=== PATIENT | female | born 1945 | race Caucasian/White ===

== ENCOUNTER → 2016-06-19 | Outpatient (REF) | payer MEDICARE, BC ==
[~2016-06-19] MED LIST: ASPI81TA3 OR; ASPI81TA85 PO; BUPR100T3 PO; CALC600T10 PO; CALCTAB22 OR; KEFL500C OR; PERC7.5T8 OR; VENL37.5 OR; VENL37CA PO; VENL75TA2 OR; VITAMIN B 12 PO; WELL100T OR; [UNRECOGNIZED DRUG - OTHER] PO
[2016-06-19 11:47] LABS: MEAN CORPUSCULAR HEMOGLOBIN 31.2 pg (27.0-33.0); MEAN CORPUSCULAR HGB CONC 34.6 g/dl (32.0-36.5); MEAN CORPUSCULAR VOLUME 90.3 fl (80.0-96.0); RED CELL DISTRIBUTION WIDTH 12.8 % (11.5-14.5); WHITE BLOOD COUNT 5.7 K/mm3 (4.0-10.0)
[2016-06-19 11:54] LABS: ALBUMIN 3.6 GM/DL (3.2-5.2); ALBUMIN/GLOBULIN RATIO 1.24 (1.00-1.93); ALKALINE PHOSPHATASE 88 U/L (45-117); ALT/SGPT 21 U/L (12-78); ANION GAP 8 MEQ/L (8-16); AST/SGOT 18 U/L (15-37); BILIRUBIN,TOTAL 0.5 MG/DL (0.2-1.0); BLOOD UREA NITROGEN 10 MG/DL (7-18); CARBON DIOXIDE LEVEL 31 MEQ/L (21-32); CHLORIDE LEVEL 105 MEQ/L (98-107); CHOLESTEROL LEVEL 190 MG/DL (<200); GLOMERULAR FILTRATION RATE > 60.0 (>39); GLUCOSE, FASTING 88 MG/DL (83-110); POTASSIUM SERUM 4.1 MEQ/L (3.5-5.1); SODIUM LEVEL 144 MEQ/L (136-145); TOTAL PROTEIN 6.5 GM/DL (6.4-8.2); TRIGLYCERIDES LEVEL 113 MG/DL (<150)
== END ==
LOC: M SFHCCLAY 08:31
PROVIDERS: ATTEND Family Medicine
DX: Z00.00 Encounter for general adult medical examination without abnormal findings (principal); F33.40 Major depressive disorder, recurrent, in remission, unspecified; Z85.038 Personal history of other malignant neoplasm of large intestine; Z78.0 Asymptomatic menopausal state; Z79.899 Other long term (current) drug therapy; Z23 Encounter for immunization

== ENCOUNTER → 2016-06-24 | Outpatient (CLI) | payer MEDICARE, BC ==
[~2016-06-24] VITALS: Ht 165.1 cm; Wt 69.9 kg
[~2016-06-24] MED LIST changes: +LIDOCAINE 2% INJ 100 MG/5 ML SDV (FOR ANES.) As Ordered ONE; +NS 1,000 ML IV SCH; +PROPOFOL 200 MG/20 ML VIAL As Ordered ONE
--- NOTE | 2016-06-24 10:39 | ROOR ---
Patient Name: Sherine Avalos Procedure Date: 06/24/2016 10:05 AM Date of : 1945 Age: 70 Room: [facility] Gender: Female Note Status: Finalized Procedure: Colonoscopy to Cecum + Cold Snare Polypectomy + Hemoclips Indications: High risk colon cancer surveillance: Personal history of colonic polyps, Last colonoscopy: 2013 Providers: Flavio Lyons MD Referring MD: Zan Mccracken MD Requesting Provider: Medicines: Monitored Anesthesia Care Complications: No immediate complications. Procedure: Pre-Anesthesia Assessment: - The heart rate, respiratory rate, oxygen saturations, blood pressure, adequacy of pulmonary ventilation, and response to care were monitored throughout the procedure. The Colonoscope was introduced through the anus and advanced to the cecum, identified by appendiceal orifice and ileocecal valve. The colonoscopy was performed without difficulty. The patient tolerated the procedure well. The quality of the bowel preparation was excellent. Findings: The perianal and digital rectal examinations were normal. A medium polyp was found in the rectum. The polyp was sessile. The polyp was removed with a cold snare. Resection and retrieval were complete. To prevent bleeding after the polypectomy, three hemostatic clips were successfully placed (MR conditional). There was no bleeding at the end of the procedure. No other significant abnormalities were identified in a careful examination of the remainder of the colon. The exam was otherwise without abnormality on direct and retroflexion views. Impression: - One medium polyp in the rectum, removed with a cold snare. Resected and retrieved. Clips (MR conditional) were placed. - The examination was otherwise normal on direct and retroflexion views. - The exam was otherwise normal to the cecum. Recommendation: - Patient has a contact number available for emergencies. The signs and symptoms of potential delayed complications were discussed with the patient. Return to normal activities tomorrow. Written discharge instructions were provided to the patient. - High fiber diet. - Discharge patient to home. - Continue present medications. - Await pathology results. - Telephone GI clinic for pathology results in 1 week. - Repeat colonoscopy in 5 years for surveillance based on pathology results. - Return to referring physician. - The findings and recommendations were discussed with the patient's family. Flavio Lyons MD Flavio Lyons MD 06/24/2016 10:38:27 AM This report has been signed electronically. Number of Addenda: 0 Note Initiated On: 06/24/2016 10:05 AM Estimated Blood Loss: Estimated blood loss: none.
[2016-06-24 11:05] VITALS: BP 138/90
== END | disposition home or self-care (01) ==
LOC: M OPP 09:12
PROVIDERS: ATTEND Internal Medicine Gastroenterology
DX: Z12.11 Encounter for screening for malignant neoplasm of colon (principal); K62.1 Rectal polyp; F33.9 Major depressive disorder, recurrent, unspecified; Z79.82 Long term (current) use of aspirin; Z79.899 Other long term (current) drug therapy; Z85.038 Personal history of other malignant neoplasm of large intestine

== ENCOUNTER → 2016-10-07 | Outpatient (CLI) | payer MEDICARE, BC ==
[~2016-10-07] MED LIST changes: -LIDOCAINE 2% INJ 100 MG/5 ML SDV (FOR ANES.) As Ordered ONE; -NS 1,000 ML IV SCH; -PROPOFOL 200 MG/20 ML VIAL As Ordered ONE
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
== END ==
LOC: M WHC 08:18
PROVIDERS: ATTEND Family Medicine
DX: Z78.0 Asymptomatic menopausal state (principal)

== ENCOUNTER → 2017-06-20 | Outpatient (REF) | payer MEDICARE, BC ==
[2017-06-20 11:44] LABS: HEMATOCRIT 41.3 % (36.0-47.0); HEMOGLOBIN 13.8 g/dl (12.0-16.0); MEAN CORPUSCULAR HEMOGLOBIN 29.7 pg (27.0-33.0); MEAN CORPUSCULAR HGB CONC 33.4 g/dl (32.0-36.5); PLATELET COUNT, AUTOMATED 226 10^3/uL (150-450); RED BLOOD COUNT 4.64 10^6/uL (4.00-5.40); RED CELL DISTRIBUTION WIDTH 12.7 % (11.5-14.5); WHITE BLOOD COUNT 6.3 10^3/uL (4.0-10.0)
[2017-06-20 12:05] LABS: ALBUMIN 3.8 GM/DL (3.2-5.2); ALBUMIN/GLOBULIN RATIO 1.09 (1.00-1.93); ALKALINE PHOSPHATASE 93 U/L (45-117); ALT/SGPT 30 U/L (12-78); ANION GAP 5 MEQ/L (8-16); AST/SGOT 26 U/L (7-37); BILIRUBIN,TOTAL 0.5 MG/DL (0.2-1.0); BLOOD UREA NITROGEN 19 MG/DL (7-18); CARBON DIOXIDE LEVEL 32 MEQ/L (21-32); CHLORIDE LEVEL 103 MEQ/L (98-107); CHOLESTEROL LEVEL 214 MG/DL (<200); CHOLESTEROL RISK RATIO 2.708 (<5); CREATININE FOR GFR 0.93 MG/DL (0.55-1.30); GLOMERULAR FILTRATION RATE > 60.0 (>39); GLUCOSE, FASTING 91 MG/DL (70-100); HDL CHOLESTEROL 79 MG/DL (>40); LDL CHOLESTEROL 114.6 MG/DL (<100); NON-HDL-C 135 MG/DL; POTASSIUM SERUM 4.2 MEQ/L (3.5-5.1); SODIUM LEVEL 140 MEQ/L (136-145); TOTAL PROTEIN 7.3 GM/DL (6.4-8.2); TRIGLYCERIDES LEVEL 102 MG/DL (<150)
== END ==
LOC: M SFHCCLAY 08:02
DX: Z00.00 Encounter for general adult medical examination without abnormal findings (principal); F33.40 Major depressive disorder, recurrent, in remission, unspecified; Z85.038 Personal history of other malignant neoplasm of large intestine; Z79.899 Other long term (current) drug therapy
CPT/HCPCS: 84443

== ENCOUNTER → 2017-08-25 | Outpatient (REF) | payer MEDICARE, BC | LOC: M SFHCCLAY 10:51 | DX: Z00.00 Encounter for general adult medical examination without abnormal findings (principal) | CPT/HCPCS: 84443 ==

== ENCOUNTER → 2017-09-26 | Outpatient (CLI) | payer MEDICARE, BC | LOC: M CLY 14:34 | DX: J40 Bronchitis, not specified as acute or chronic (principal) | CPT/HCPCS: 71046; G0463 ==

== ENCOUNTER → 2017-12-08 | Outpatient (CLI) | payer MEDICARE, BC | LOC: M RAD 09:41 | DX: Z12.31 Encounter for screening mammogram for malignant neoplasm of breast (principal); N60.11 Diffuse cystic mastopathy of right breast; N60.12 Diffuse cystic mastopathy of left breast; Z80.3 Family history of malignant neoplasm of breast | CPT/HCPCS: 77067 ==

== ENCOUNTER → 2018-06-26 | Outpatient (REF) | payer MEDICARE, BC ==
[~2018-06-26] MED LIST changes: -CALC600T10 PO; +CALC600T31 PO; +VENL37.52 PO; -VENL37CA PO
[2018-06-26 12:23] LABS: HEMATOCRIT 42.8 % (36.0-47.0); HEMOGLOBIN 13.9 g/dl (12.0-15.5); MEAN CORPUSCULAR HEMOGLOBIN 29.3 pg (27.0-33.0); MEAN CORPUSCULAR HGB CONC 32.5 g/dl (32.0-36.5); MEAN CORPUSCULAR VOLUME 90.3 fl (80.0-96.0); PLATELET COUNT, AUTOMATED 228 10^3/uL (150-450); RED BLOOD COUNT 4.74 10^6/uL (4.00-5.40); WHITE BLOOD COUNT 6.2 10^3/uL (4.0-10.0)
[2018-06-26 12:36] LABS: ALBUMIN 3.9 GM/DL (3.2-5.2); ALT/SGPT 27 U/L (12-78); BILIRUBIN,TOTAL 0.5 MG/DL (0.2-1.0); BLOOD UREA NITROGEN 19 MG/DL (7-18); CALCIUM LEVEL 8.8 MG/DL (8.8-10.2); CARBON DIOXIDE LEVEL 31 MEQ/L (21-32); CHLORIDE LEVEL 103 MEQ/L (98-107); CHOLESTEROL LEVEL 215 MG/DL (<200); CHOLESTEROL RISK RATIO 3.359 (<5); CREATININE FOR GFR 0.92 MG/DL (0.55-1.30); GLOMERULAR FILTRATION RATE > 60.0 (>39); GLUCOSE, FASTING 90 MG/DL (70-100); HDL CHOLESTEROL 64 MG/DL (>40); LDL CHOLESTEROL 124 MG/DL (<100); NON-HDL-C 151 MG/DL; POTASSIUM SERUM 4.4 MEQ/L (3.5-5.1); SODIUM LEVEL 138 MEQ/L (136-145); TOTAL 25(OH) VITAMIN D 28.4 NG/ML (30.0-100.0); TOTAL PROTEIN 7.1 GM/DL (6.4-8.2); TRIGLYCERIDES LEVEL 134 MG/DL (<150)
== END ==
LOC: M SFHCCLAY 08:47
PROVIDERS: ATTEND Family Medicine
DX: Z00.00 Encounter for general adult medical examination without abnormal findings (principal); F33.40 Major depressive disorder, recurrent, in remission, unspecified; Z85.3 Personal history of malignant neoplasm of breast

== ENCOUNTER → 2019-08-03 | Outpatient (CLI) | payer MEDICARE, BC ==
--- NOTE | 2019-08-03 16:42 | REP ---
HISTORY: Cough and fever. COMPARISON: 09/26/2017 A subtle opacity has developed in the left lower lobe retrocardiac region, best seen on the lateral view. The lung gonzalez are otherwise clear. The heart is not enlarged and the osseous structures stable and intact. IMPRESSION: Subtle but new left lower lobe opacity. Subsegmental atelectatic change versus pneumonia. This should be correlated clinically with appropriate followup. Electronically Signed by Fred Melton DO 08/03/2019 04:57 P
== END ==
LOC: M CLY 15:32
PROVIDERS: ATTEND Nurse Practitioner Family
DX: R91.8 Other nonspecific abnormal finding of lung field (principal); R05 Cough
CPT/HCPCS: 71046; G0463

== ENCOUNTER → 2019-08-05 | Outpatient (REF) | payer MEDICARE, BC | LOC: M SFHCCLAY 12:04 | PROVIDERS: ATTEND Family Medicine | DX: J12.9 Viral pneumonia, unspecified (principal); Z11.59 Encounter for screening for other viral diseases ==

== ENCOUNTER → 2019-08-18 | Outpatient (CLI) | payer MEDICARE, BC ==
--- NOTE | 2019-08-18 10:14 | REP ---
REASON: Followup. COMPARISON: 08/03/2019 The subtle opacity seen in the anterior segment of the left lower lobe has resolved. The lung gonzalez are clear and the heart is not enlarged. The pleural angles are sharp. The osseous structures are stable and intact. IMPRESSION: No evidence of acute cardiopulmonary disease. Findings as described above. Electronically Signed by Fred Melton DO 08/18/2019 10:24 A
== END ==
LOC: M CLY 09:20
PROVIDERS: ATTEND Nurse Practitioner Family
DX: J18.9 Pneumonia, unspecified organism (principal)

== ENCOUNTER → 2019-09-30 | Outpatient (CLI) | payer MEDICARE, BC ==
--- NOTE | 2019-10-08 18:44 | SLEEPCENT ---
DATE OF PROCEDURE: 09/30/2019 ORDERED BY: KANIKA Mcintosh Nocturnal polysomnography was performed for evaluation of sleep physiology in this patient with a history of excessive somnolence and nonrestorative sleep. At the patient's request, testing was performed in a reclining chair. 8 hours and 7 minutes of data were reviewed. There were 287 minutes of sleep identified. Sleep latency was short at 12 minutes. Rapid eye movement (REM) latency was prolonged at 370 minutes. Sleep architecture showed fragmentation. Overall sleep efficiency was 60.1%. The patient's electrocardiogram showed a sinus rhythm with an average heart rate of 67 beats per minute. EEG showed normal waveforms for awake and sleep. There were 333 respiratory events identified of 10 seconds in duration or greater for an apnea-hypopnea index of 69.6. The events were primarily obstructive, though 114 of 333 events were mixed or central. Arousals from respiratory events occurred 55.2 times per hour. There was activity in the limb leads but arousals were few and oxygen desaturations were seen into the low 80s. IMPRESSION: Severe complex obstructive sleep apnea syndrome (G47.31, G47.33), apnea-hypopnea index 69.6. RECOMMENDATIONS: The patient should be encouraged to return to the sleep disorder center for pressure therapy. In the interim, alcohol and sedative avoidance should be practiced and caution exercised during the operation of motor vehicles.
== END ==
LOC: M SLEEP 20:00
PROVIDERS: ATTEND Nurse Practitioner Family
DX: G47.33 Obstructive sleep apnea (adult) (pediatric) (principal)

== ENCOUNTER → 2019-11-11 | Outpatient (CLI) | payer MEDICARE, BC ==
[~2019-11-11] MED LIST changes: -ASPI81TA85 PO; +ASPI81TA86 PO
--- NOTE | 2019-11-24 11:27 | SLEEPCENT ---
DATE OF PROCEDURE: 11/11/2019 ORDERED BY: KANIKA Mcintosh Nocturnal polysomnography was performed for the titration of pressure therapy in this patient with obstructive sleep apnea syndrome. Apnea-hypopnea index of 69.6. For testing a ResMed F20 AirFit full-face mask of small size was used; 4 cm of water pressure applied to the circuit and the lights were extinguished. 7 hours and 41 minutes of data were reviewed. There were 401 minutes of sleep identified. Sleep latency was short at 4.5 minutes. Rapid eye movement (REM) latency was also short of 86 minutes. Sleep architecture was good with 3 REM cycles. Overall sleep efficiency 88.6%. The patient's electrocardiogram showed a sinus rhythm with an average heart rate of 60 beats per minute. Electroencephalogram (EEG) showed normal waveforms for awake and sleep stages. Persistence of respiratory events prompted an increase in CPAP pressure. Best sleep was seen on a CPAP pressure of +13. Some activity was seen in the limb leads particularly early in the study. Limb movement arousal index of 6. IMPRESSION: Obstructive sleep apnea syndrome (G47.33). Apnea-hypopnea index 69.6. RECOMMENDATIONS: Nightly use of pressure therapy 13 cm of water.
== END ==
LOC: M SLEEP 20:00
PROVIDERS: ATTEND Nurse Practitioner Family
DX: G47.33 Obstructive sleep apnea (adult) (pediatric) (principal)

== ENCOUNTER → 2020-05-03 | Outpatient (REF) | payer MEDICARE, BC ==
[2020-05-03 16:32] LABS: HEMOGLOBIN 13.9 g/dl (12.0-15.5); MEAN CORPUSCULAR HEMOGLOBIN 28.8 pg (27.0-33.0); MEAN CORPUSCULAR HGB CONC 31.6 g/dl (32.0-36.5); MEAN CORPUSCULAR VOLUME 91.3 fl (80.0-96.0); PLATELET COUNT, AUTOMATED 207 10^3/uL (150-450); RED BLOOD COUNT 4.82 10^6/uL (4.00-5.40); WHITE BLOOD COUNT 8.1 10^3/uL (4.0-10.0)
[2020-05-03 16:47] LABS: ALBUMIN 3.8 GM/DL (3.2-5.2); ALT/SGPT 29 U/L (12-78); BILIRUBIN,TOTAL 0.7 MG/DL (0.2-1.0); BLOOD UREA NITROGEN 14 MG/DL (7-18); CALCIUM LEVEL 9.5 MG/DL (8.8-10.2); CARBON DIOXIDE LEVEL 31 MEQ/L (21-32); CHLORIDE LEVEL 105 MEQ/L (98-107); CHOLESTEROL LEVEL 143 MG/DL (<200); CHOLESTEROL RISK RATIO 1.958 (<5); CREATININE FOR GFR 0.89 MG/DL (0.55-1.30); FREE T4 0.85 NG/DL (0.76-1.46); GLOMERULAR FILTRATION RATE > 60.0 (>39); GLUCOSE, FASTING 93 MG/DL (70-100); HDL CHOLESTEROL 73 MG/DL (>40); LDL CHOLESTEROL 42 MG/DL (<100); NON-HDL-C 70 MG/DL; POTASSIUM SERUM 4.4 MEQ/L (3.5-5.1); SODIUM LEVEL 141 MEQ/L (136-145); TOTAL PROTEIN 7.5 GM/DL (6.4-8.2); TRIGLYCERIDES LEVEL 139 MG/DL (<150)
[2020-05-03 17:19] LABS: CA19-9 TUMOR MARKER,CARBOHYDRA 1.7 U/ML (<35.0)
== END ==
LOC: M SFHCCLAY 10:34
PROVIDERS: ATTEND Family Medicine
DX: E78.2 Mixed hyperlipidemia (principal); Z85.038 Personal history of other malignant neoplasm of large intestine; Z85.3 Personal history of malignant neoplasm of breast

== ENCOUNTER → 2020-10-11 | Outpatient (CLI) | payer MEDICARE, BC ==
--- NOTE | 2020-10-11 13:06 | REP ---
INDICATION: M25.551 RIGHT HIP PAIN. COMPARISON: None. TECHNIQUE: Five views FINDINGS: Vertebral body height is within normal limits. There is disc space narrowing L 3/ 4 and L4-5 to the greatest degree with posterior disc space narrowing seen at all other levels. There is anterior lipping seen at those levels as well. There is mild retrolisthesis of L3 on L4. Degenerative facet joint changes are present at every level bilaterally particularly L5-S1. There is no spondylolysis or anterolisthesis. Marginal osteophyte formation is seen bilaterally at L4-5. The pedicles are intact bilaterally. IMPRESSION: Chronic changes as described above. <Electronically signed by Fred Melton > 10/11/20 [id number]
--- NOTE | 2020-10-11 13:08 | REP ---
INDICATION: M25.551 RIGHT HIP PAIN. COMPARISON: None TECHNIQUE: AP and frog-lateral views FINDINGS: The hip joint space is symmetric and relatively well maintained. There is no acute fracture or destructive osseous lesion. IMPRESSION: Within normal limits <Electronically signed by Fred Melton > 10/11/20 [id number]
== END ==
LOC: M CLY 11:43
PROVIDERS: ATTEND Family Medicine
DX: M51.36 Other intervertebral disc degeneration, lumbar region (principal); M25.78 Osteophyte, vertebrae; M25.551 Pain in right hip
CPT/HCPCS: 72110; 73502; G0463

== ENCOUNTER → 2021-02-20 | Outpatient (REF) | payer MEDICARE, BC | LOC: M SFHCCLAY 16:45 | PROVIDERS: ATTEND Physician Assistant | DX: R05.9 Cough, unspecified (principal) | CPT/HCPCS: 87426; 87798; G0463 ==

== ENCOUNTER → 2021-02-21 | Outpatient (CLI) | payer MEDICARE, BC ==
--- NOTE | 2021-02-21 09:12 | REP ---
INDICATION: R05.9, COUGH. COMPARISON: Multiple the latest 08/18/2019 TECHNIQUE: PA and lateral FINDINGS: The superior mediastinal structures are midline. The cardiac silhouette is unremarkable in size, shape, and position. The diaphragmatic surfaces of the lungs are regular, and the costophrenic angles are clear. The pulmonary gonzalez are clear. The imaged osseous structures are intact. IMPRESSION: There is no acute cardiopulmonary disease. <Electronically signed by Fred Melton > 02/21/21 [id number]
== END ==
LOC: M CLY 08:53
PROVIDERS: ATTEND Physician Assistant
DX: R05.9 Cough, unspecified (principal)

== ENCOUNTER → 2021-06-07 | Outpatient (REF) | payer MEDICARE, BC ==
[2021-06-07 11:39] LABS: BASO % 0.7 % (0.0-1.0); HEMATOCRIT 42.1 % (36.0-47.0); HEMOGLOBIN 13.5 g/dl (12.0-15.5); LYMPH # 1.5 10^3/uL (1.5-5.0); LYMPH % 26.7 % (24.0-44.0); MEAN CORPUSCULAR HEMOGLOBIN 29.7 pg (27.0-33.0); MEAN CORPUSCULAR HGB CONC 32.1 g/dl (32.0-36.5); MEAN CORPUSCULAR VOLUME 92.5 fl (80.0-96.0); MONO # 0.4 10^3/uL (0.0-0.8); MONO % 7.5 % (2.0-8.0); NEUTROPHILS # 3.5 10^3/uL (1.5-8.5); NEUTROPHILS % 60.8 % (36.0-66.0); PLATELET COUNT, AUTOMATED 193 10^3/uL (150-450); RED BLOOD COUNT 4.55 10^6/uL (4.00-5.40); WHITE BLOOD COUNT 5.7 10^3/uL (4.0-10.0)
[2021-06-07 11:40] LABS: EOS # 0.2 10^3/uL (0.0-0.5)
[2021-06-07 12:27] LABS: ALBUMIN 3.9 GM/DL (3.2-5.2); ALT/SGPT 31 U/L (12-78); BILIRUBIN,TOTAL 0.6 MG/DL (0.2-1.0); BLOOD UREA NITROGEN 15 MG/DL (7-18); CALCIUM LEVEL 9.5 MG/DL (8.8-10.2); CARBON DIOXIDE LEVEL 29 MEQ/L (21-32); CHLORIDE LEVEL 104 MEQ/L (98-107); CHOLESTEROL LEVEL 153 MG/DL (<200); CHOLESTEROL RISK RATIO 2.593 (<5); CREATININE FOR GFR 0.92 MG/DL (0.55-1.30); FREE T4 0.96 NG/DL (0.76-1.46); GLOMERULAR FILTRATION RATE > 60.0 (>39); GLUCOSE, FASTING 99 MG/DL (70-100); HDL CHOLESTEROL 59 MG/DL (>40); LDL CHOLESTEROL 62 MG/DL (<100); NON-HDL-C 94 MG/DL; POTASSIUM SERUM 4.6 MEQ/L (3.5-5.1); SODIUM LEVEL 140 MEQ/L (136-145); TOTAL PROTEIN 6.8 GM/DL (6.4-8.2); TRIGLYCERIDES LEVEL 162 MG/DL (<150)
== END ==
LOC: M SFHCCLAY 08:52
PROVIDERS: ATTEND Family Medicine
DX: E78.2 Mixed hyperlipidemia (principal); F33.40 Major depressive disorder, recurrent, in remission, unspecified; Z85.038 Personal history of other malignant neoplasm of large intestine; Z79.899 Other long term (current) drug therapy

== ENCOUNTER → 2021-07-16 | Outpatient (REF) | payer MEDICARE, BC ==
[2021-07-16 16:55] LABS: ALBUMIN 4.3 GM/DL (3.2-5.2); BILIRUBIN,TOTAL 0.7 MG/DL (0.2-1.0); CALCIUM LEVEL 9.9 MG/DL (8.8-10.2); CHOLESTEROL RISK RATIO 3.774 (<5); CREATININE FOR GFR 1.09 MG/DL (0.55-1.30); FREE T4 0.96 NG/DL (0.76-1.46); POTASSIUM SERUM 4.6 MEQ/L (3.5-5.1); THYROID STIMULATING HORMONE 3.25 uIU/ML (0.358-3.740); TOTAL PROTEIN 7.5 GM/DL (6.4-8.2)
== END ==
LOC: M SFHCCLAY 10:38
PROVIDERS: ATTEND Family Medicine
DX: I10 Essential (primary) hypertension (principal)

== ENCOUNTER → 2021-07-24 | Outpatient (CLI) | payer MEDICARE, BC | LOC: M RAD 10:33 | PROVIDERS: ATTEND Family Medicine | DX: G89.29 Other chronic pain (principal); M25.511 Pain in right shoulder ==

== ENCOUNTER → 2021-11-29 | Outpatient (REF) | payer MEDICARE, BC ==
[~2021-11-29] MED LIST changes: +BUPR-70 PO; -BUPR100T3 PO
[2021-11-29 11:41] LABS: BLOOD UREA NITROGEN 14 MG/DL (7-18); CARBON DIOXIDE LEVEL 28 MEQ/L (21-32); CHLORIDE LEVEL 108 MEQ/L (98-107); CREATININE FOR GFR 0.85 MG/DL (0.55-1.30); GLOMERULAR FILTRATION RATE > 60.0 (>39); GLUCOSE, FASTING 108 MG/DL (70-100); POTASSIUM SERUM 4.6 MEQ/L (3.5-5.1); SODIUM LEVEL 142 MEQ/L (136-145)
[2021-11-29 11:42] LABS: CALCIUM LEVEL 9.8 MG/DL (8.8-10.2)
== END ==
LOC: M SFHCCLAY 07:40
PROVIDERS: ATTEND Family Medicine
DX: E87.6 Hypokalemia (principal); S82.852S Displaced trimalleolar fracture of left lower leg, sequela

== ENCOUNTER → 2022-01-24 | Outpatient (REF) | payer MEDICARE, BC ==
[2022-01-24 18:03] LABS: CALCIUM LEVEL 9.1 MG/DL (8.8-10.2); GLOMERULAR FILTRATION RATE 57.2 (>39); POTASSIUM SERUM 4.2 MEQ/L (3.5-5.1)
== END ==
LOC: M SFHCCLAY 10:15
PROVIDERS: ATTEND Family Medicine
DX: I10 Essential (primary) hypertension (principal)

== ENCOUNTER → 2022-02-13 | Outpatient (CLI) | payer MEDICARE, BC ==
[~2022-02-13] MED LIST changes: +ALDA25TA4 PO; +BUPR150T12 PO; +CALCIUM + MAGNESIUM PO; +ECOT81TA5 PO; +PREVAGEN PO; +ROSU20TA5 PO; +VENL37.598 PO; +VITA200016 PO; +ZINC100T3 PO
== END ==
LOC: M LABSMTC 10:05
PROVIDERS: ATTEND Anesthesiology
DX: Z01.812 Encounter for preprocedural laboratory examination (principal); Z11.52 Encounter for screening for COVID-19

== ENCOUNTER 2022-02-18 08:18 | Day surgery (SDC) | payer MEDICARE, BC ==
[~2022-02-18] VITALS: Ht 165.1 cm; Wt 76.7 kg
[~2022-02-18 08:18] MED LIST changes: +NS 1,000 ML IV ONE
[2022-02-18] MEDS ORDERED: propofoL 200 MG/20 ML VIAL As Ordered ONE ×3 (09:27→09:41)
[2022-02-18] MEDS ORDERED: LIDOCAINE 2% 100MG/5ML SDV (FOR ANES.) As Ordered ONE (09:27)
[2022-02-18] MEDS ORDERED: GLYCOPYRROLATE INJ 0.2 MG/ML 2 ML VIAL As Ordered ONE (09:27)
[2022-02-18 10:15] VITALS: BP 140/69
== END 2022-02-18 10:54 | disposition home or self-care (01) ==
LOC: M OPP 08:18
PROVIDERS: ATTEND Internal Medicine Gastroenterology
DX: Z12.11 Encounter for screening for malignant neoplasm of colon (principal); Z86.010 Personal history of colon polyps; Z85.038 Personal history of other malignant neoplasm of large intestine; K63.5 Polyp of colon; D12.5 Benign neoplasm of sigmoid colon; K57.30 Diverticulosis of large intestine without perforation or abscess without bleeding; K64.0 First degree hemorrhoids; Z79.02 Long term (current) use of antithrombotics/antiplatelets; Z79.52 Long term (current) use of systemic steroids; Z79.899 Other long term (current) drug therapy; F32.9 Major depressive disorder, single episode, unspecified

== ENCOUNTER → 2022-05-02 | Outpatient (REF) | payer MEDICARE, BC ==
[~2022-05-02] MED LIST changes: -NS 1,000 ML IV ONE
[2022-05-02 18:02] LABS: MAGNESIUM LEVEL 1.9 MG/DL (1.8-2.4)
[2022-05-02 18:04] LABS: BLOOD UREA NITROGEN 20 MG/DL (9-23); CALCIUM LEVEL 9.5 MG/DL (8.3-10.6); CARBON DIOXIDE LEVEL 28 MMOL/L (20-31); CHLORIDE LEVEL 103 MMOL/L (98-107); CREATININE FOR GFR 0.95 MG/DL (0.55-1.30); GLOMERULAR FILTRATION RATE > 60.0 (>39); GLUCOSE, FASTING 82 MG/DL (74-106); POTASSIUM SERUM 4.9 MMOL/L (3.5-5.1); SODIUM LEVEL 139 MMOL/L (136-145); THYROID STIMULATING HORMONE 3.676 uIU/ML (0.55-4.78)
[2022-05-02 18:06] LABS: FREE T4 0.98 NG/DL (0.89-1.76)
== END ==
LOC: M SFHCCLAY 11:18
PROVIDERS: ATTEND Family Medicine
DX: J68.3 Other acute and subacute respiratory conditions due to chemicals, gases, fumes and vapors (principal); I10 Essential (primary) hypertension; I51.7 Cardiomegaly; R00.1 Bradycardia, unspecified

== ENCOUNTER → 2022-05-02 | Outpatient (CLI) | payer MEDICARE, BC | LOC: M CLY 11:39 | PROVIDERS: ATTEND Family Medicine | DX: J68.3 Other acute and subacute respiratory conditions due to chemicals, gases, fumes and vapors (principal) ==

== ENCOUNTER → 2022-05-23 | Outpatient (CLI) | payer MEDICARE, BC | LOC: M WHC 08:47 | PROVIDERS: ATTEND Family Medicine | DX: Z12.31 Encounter for screening mammogram for malignant neoplasm of breast (principal) ==

== ENCOUNTER → 2022-08-28 | Outpatient (REF) | payer MEDICARE, BC ==
[2022-08-28 12:07] LABS: BASO # 0.1 10^3/uL (0.0-0.2); BASO % 0.7 % (0.0-1.0); EOS # 0.3 10^3/uL (0.0-0.5); EOS % 4.2 % (0.0-3.0); HEMOGLOBIN 12.9 g/dl (12.0-15.5); LYMPH # 1.6 10^3/uL (1.5-5.0); LYMPH % 23.4 % (24.0-44.0); MEAN CORPUSCULAR HEMOGLOBIN 30.1 pg (27.0-33.0); MEAN CORPUSCULAR HGB CONC 32.3 g/dl (32.0-36.5); MEAN CORPUSCULAR VOLUME 93.5 fl (80.0-96.0); MONO # 0.5 10^3/uL (0.0-0.8); MONO % 6.9 % (2.0-8.0); NEUTROPHILS # 4.3 10^3/uL (1.5-8.5); NEUTROPHILS % 64.7 % (36.0-66.0); PLATELET COUNT, AUTOMATED 192 10^3/uL (150-450); RED BLOOD COUNT 4.28 10^6/uL (4.00-5.40); WHITE BLOOD COUNT 6.7 10^3/uL (4.0-10.0)
[2022-08-28 12:11] LABS: ALBUMIN 3.7 G/DL (3.2-5.2); ALKALINE PHOSPHATASE 67 U/L (46-116); ALT/SGPT 42 U/L (7.0-40); AST/SGOT 29 U/L (<34); BILIRUBIN,TOTAL 0.4 MG/DL (0.3-1.2); BLOOD UREA NITROGEN 22 MG/DL (9-23); CARBON DIOXIDE LEVEL 32 MMOL/L (20-31); CHLORIDE LEVEL 106 MMOL/L (98-107); CREATININE FOR GFR 0.91 MG/DL (0.55-1.30); GLOMERULAR FILTRATION RATE > 60.0 (>39); GLUCOSE, FASTING 87 MG/DL (74-106); POTASSIUM SERUM 4.2 MMOL/L (3.5-5.1); SODIUM LEVEL 142 MMOL/L (136-145); TOTAL PROTEIN 6.6 G/DL (5.7-8.2)
[2022-08-28 12:12] LABS: THYROID STIMULATING HORMONE 4.212 uIU/ML (0.55-4.78)
[2022-08-28 12:13] LABS: FREE T4 0.82 NG/DL (0.89-1.76)
[2022-08-28 12:30] LABS: APPEARANCE, URINE CLEAR (CLEAR); BACTERIA, URINE AUTO NEGATIVE (NEGATIVE); BILIRUBIN, URINE AUTO NEGATIVE (NEGATIVE); BLOOD, URINE BLOOD 1+ (NEGATIVE); COLOR, URINE YELLOW (YELLOW); GLUCOSE, URINE (UA) AUTO NEGATIVE (NEGATIVE); KETONE, URINE AUTO NEGATIVE (NEGATIVE); LEUKOCYTE ESTERASE, URINE AUTO TRACE (NEGATIVE); MUCUS, URINE SMALL (NEGATIVE); NITRITE, URINE AUTO NEGATIVE (NEGATIVE); PROTEIN, URINE AUTO NEGATIVE (NEGATIVE); RBC, URINE AUTO 1 /HPF (0-3); SPECIFIC GRAVITY URINE AUTO 1.026 (1.002-1.035); SQUAMOUS EPITHELIAL CELL UR AU 0 /HPF (0-6); UROBILINOGEN, URINE AUTO 0.2 mg/dL (0.0-2.0); WBC, URINE AUTO 5 /HPF (0-3)
== END ==
LOC: M SFHCCLAY 08:45
PROVIDERS: ATTEND Family Medicine
DX: E78.2 Mixed hyperlipidemia (principal); I10 Essential (primary) hypertension; F33.40 Major depressive disorder, recurrent, in remission, unspecified; J68.3 Other acute and subacute respiratory conditions due to chemicals, gases, fumes and vapors; R00.1 Bradycardia, unspecified; Z85.038 Personal history of other malignant neoplasm of large intestine

== ENCOUNTER → 2022-10-28 | Outpatient (REF) | payer MEDICARE, BC ==
[~2022-10-28] MED LIST changes: -ROSU20TA5 PO; +ROSU20TA61 PO
[2022-10-28 20:18] LABS: FREE T4 0.92 NG/DL (0.89-1.76)
[2022-10-28 20:19] LABS: THYROID STIMULATING HORMONE 4.114 uIU/ML (0.55-4.78)
[2022-10-28 20:20] LABS: BILIRUBIN,DIRECT 0.2 MG/DL (<0.4); BILIRUBIN,TOTAL 0.6 MG/DL (0.3-1.2); TOTAL PROTEIN 6.7 G/DL (5.7-8.2)
== END ==
LOC: M SFHCCLAY 10:38
PROVIDERS: ATTEND Family Medicine
DX: R79.89 Other specified abnormal findings of blood chemistry (principal); R74.8 Abnormal levels of other serum enzymes; Z79.899 Other long term (current) drug therapy

== ENCOUNTER → 2023-02-27 | Outpatient (REF) | payer MEDICARE, BC ==
[2023-02-27 13:53] LABS: BASO # 0.1 10^3/uL (0.0-0.2); BASO % 0.7 % (0.0-1.0); EOS # 0.3 10^3/uL (0.0-0.5); EOS % 4.1 % (0.0-3.0); HEMATOCRIT 39.6 % (36.0-47.0); HEMOGLOBIN 12.8 g/dl (12.0-15.5); LYMPH # 1.6 10^3/uL (1.5-5.0); LYMPH % 20.7 % (24.0-44.0); MEAN CORPUSCULAR HEMOGLOBIN 29.6 pg (27.0-33.0); MEAN CORPUSCULAR HGB CONC 32.3 g/dl (32.0-36.5); MEAN CORPUSCULAR VOLUME 91.7 fl (80.0-96.0); MONO # 0.5 10^3/uL (0.0-0.8); MONO % 7.1 % (2.0-8.0); NEUTROPHILS # 5.1 10^3/uL (1.5-8.5); PLATELET COUNT, AUTOMATED 200 10^3/uL (150-450); RED BLOOD COUNT 4.32 10^6/uL (4.00-5.40); WHITE BLOOD COUNT 7.7 10^3/uL (4.0-10.0)
[2023-02-27 14:16] LABS: ALBUMIN 3.8 G/DL (3.2-5.2); ALKALINE PHOSPHATASE 66 U/L (46-116); ALT/SGPT 24 U/L (7.0-40); AST/SGOT 23 U/L (<34); BILIRUBIN,TOTAL 0.6 MG/DL (0.3-1.2); BLOOD UREA NITROGEN 18 MG/DL (9-23); CALCIUM LEVEL 9.6 MG/DL (8.3-10.6); CARBON DIOXIDE LEVEL 31 MMOL/L (20-31); CHLORIDE LEVEL 101 MMOL/L (98-107); GLOMERULAR FILTRATION RATE > 60.0 (>39); GLUCOSE, FASTING 96 MG/DL (74-106); MAGNESIUM LEVEL 1.9 MG/DL (1.8-2.4); POTASSIUM SERUM 4.1 MMOL/L (3.5-5.1); SODIUM LEVEL 140 MMOL/L (136-145); TOTAL PROTEIN 6.7 G/DL (5.7-8.2)
== END ==
LOC: M SFHCCLAY 08:17
PROVIDERS: ATTEND Family Medicine
DX: J45.30 Mild persistent asthma, uncomplicated (principal); I10 Essential (primary) hypertension

== ENCOUNTER → 2023-05-06 | Outpatient (REF) | payer MEDICARE, BC | LOC: M SFHCCLAY 13:01 | PROVIDERS: ATTEND Family Medicine | DX: B34.9 Viral infection, unspecified (principal) ==

== ENCOUNTER → 2023-06-09 | Outpatient (CLI) | payer MEDICARE, BC ==
[~2023-06-09] MED LIST changes: +ISOVUE-300 61% 100ML VIAL As Ordered ONE; +LIDOCAINE 1% MDV 20ML VIAL As Ordered ONE; +TRIAMCINOLONE ACETONIDE SUSP 40MG/ML 1ML VIAL As Ordered ONE
== END ==
LOC: M RAD 14:04
PROVIDERS: ATTEND Orthopaedic Surgery
DX: M16.11 Unilateral primary osteoarthritis, right hip (principal)
CPT/HCPCS: 20610; 77002; J3301; Q9967

== ENCOUNTER → 2023-08-29 | Outpatient (REF) | payer MEDICARE, BC ==
[~2023-08-29] MED LIST changes: -ISOVUE-300 61% 100ML VIAL As Ordered ONE; -LIDOCAINE 1% MDV 20ML VIAL As Ordered ONE; -TRIAMCINOLONE ACETONIDE SUSP 40MG/ML 1ML VIAL As Ordered ONE
[2023-08-29 12:06] LABS: BASO # 0.1 10^3/uL (0.0-0.2); BASO % 0.6 % (0.0-1.0); EOS # 1.8 10^3/uL (0.0-0.5); EOS % 19.9 % (0.0-3.0); HEMATOCRIT 40.4 % (36.0-47.0); HEMOGLOBIN 13.6 g/dl (12.0-15.5); LYMPH # 1.6 10^3/uL (1.5-5.0); MEAN CORPUSCULAR HEMOGLOBIN 30.9 pg (27.0-33.0); MEAN CORPUSCULAR HGB CONC 33.7 g/dl (32.0-36.5); MEAN CORPUSCULAR VOLUME 91.8 fl (80.0-96.0); MONO # 0.5 10^3/uL (0.0-0.8); MONO % 5.8 % (2.0-8.0); NEUTROPHILS # 4.9 10^3/uL (1.5-8.5); NEUTROPHILS % 55.5 % (36.0-66.0); PLATELET COUNT, AUTOMATED 203 10^3/uL (150-450); WHITE BLOOD COUNT 8.8 10^3/uL (4.0-10.0)
[2023-08-29 12:38] LABS: ALKALINE PHOSPHATASE 83 U/L (46-116); ALT/SGPT 40 U/L (7.0-40); AST/SGOT 30 U/L (<34); BILIRUBIN,TOTAL 0.8 MG/DL (0.3-1.2); BLOOD UREA NITROGEN 18 MG/DL (9-23); CALCIUM LEVEL 10.5 MG/DL (8.3-10.6); CARBON DIOXIDE LEVEL 32 MMOL/L (20-31); CARCINOEMBRYONIC ANTIGEN < 2.0 NG/ML (<2.5); CHLORIDE LEVEL 101 MMOL/L (98-107); CHOLESTEROL LEVEL 113 MG/DL (<200); CHOLESTEROL RISK RATIO 1.85 (<5); CREATININE FOR GFR 1.02 MG/DL (0.55-1.30); FREE T4 1.06 NG/DL (0.89-1.76); GLOMERULAR FILTRATION RATE 55.8 (>39); GLUCOSE, FASTING 98 MG/DL (74-106); HDL CHOLESTEROL 60.9 MG/DL (>40); LDL CHOLESTEROL 33.9 MG/DL (<100); NON-HDL-C 52.1 MG/DL; POTASSIUM SERUM 4.1 MMOL/L (3.5-5.1); SODIUM LEVEL 139 MMOL/L (136-145); THYROID STIMULATING HORMONE 4.916 uIU/ML (0.55-4.78); TRIGLYCERIDES LEVEL 91 MG/DL (<150)
[2023-08-29 12:50] LABS: CA19-9 TUMOR MARKER,CARBOHYDRA 7.1 U/ML (<35.0)
== END ==
LOC: M SFHCCLAY 08:00
PROVIDERS: ATTEND Family Medicine
DX: Z00.00 Encounter for general adult medical examination without abnormal findings (principal); J45.30 Mild persistent asthma, uncomplicated; I10 Essential (primary) hypertension; R79.89 Other specified abnormal findings of blood chemistry; R74.8 Abnormal levels of other serum enzymes; Z85.038 Personal history of other malignant neoplasm of large intestine; Z85.3 Personal history of malignant neoplasm of breast; E78.2 Mixed hyperlipidemia

== ENCOUNTER → 2023-09-10 | Outpatient (CLI) | payer MEDICARE | LOC: M PLAIMG 13:33 | PROVIDERS: ATTEND Orthopaedic Surgery | DX: M47.896 Other spondylosis, lumbar region (principal); M54.50 Low back pain, unspecified; M48.061 Spinal stenosis, lumbar region without neurogenic claudication; M48.07 Spinal stenosis, lumbosacral region; N64.4 Mastodynia; R92.313 Mammographic fatty tissue density, bilateral breasts | CPT/HCPCS: 72148; 77066; G0279 ==

== ENCOUNTER → 2023-09-10 | Outpatient (CLI) | payer MEDICARE, BC | LOC: M WHC 11:57 | PROVIDERS: ATTEND Physician Assistant | DX: N64.4 Mastodynia (principal); R92.313 Mammographic fatty tissue density, bilateral breasts ==

== ENCOUNTER → 2023-10-03 | Outpatient (REF) | payer MEDICARE, BC ==
[2023-10-03 16:42] LABS: PLATELET COUNT, AUTOMATED 227 10^3/uL (150-450)
[2023-10-03 17:05] LABS: INR 1.13; PARTIAL THROMBOPLASTIN TIME 26.4 SECONDS (24.8-34.2); PROTHROMBIN TIME 14.2 SECONDS (12.5-14.5)
== END ==
LOC: M LABDRAWC 16:35
PROVIDERS: ATTEND Orthopaedic Surgery
DX: Z01.818 Encounter for other preprocedural examination (principal); M48.062 Spinal stenosis, lumbar region with neurogenic claudication

== ENCOUNTER → 2023-11-04 | Outpatient (CLI) | payer MEDICARE, BC ==
[~2023-11-04] MED LIST changes: +ISOVUE-300 61% 100ML VIAL As Ordered ONE; +LIDOCAINE 1% MDV 20ML VIAL As Ordered ONE; +TRIAMCINOLONE ACETONIDE SUSP 40MG/ML 1ML VIAL As Ordered ONE
== END ==
LOC: M RAD 13:08
PROVIDERS: ATTEND Orthopaedic Surgery
DX: M16.11 Unilateral primary osteoarthritis, right hip (principal)
CPT/HCPCS: 20610; 77002; J3301; Q9967

== ENCOUNTER → 2024-04-07 | Outpatient (CLI) | payer MEDICARE, BC ==
[~2024-04-07] MED LIST changes: -ISOVUE-300 61% 100ML VIAL As Ordered ONE; -LIDOCAINE 1% MDV 20ML VIAL As Ordered ONE; -ROSU20TA61 PO; +ROSU20TA86 PO; -TRIAMCINOLONE ACETONIDE SUSP 40MG/ML 1ML VIAL As Ordered ONE
== END ==
LOC: M PAIN 08:30
PROVIDERS: ATTEND Anesthesiology
DX: M51.16 Intervertebral disc disorders with radiculopathy, lumbar region (principal); M48.061 Spinal stenosis, lumbar region without neurogenic claudication; M25.551 Pain in right hip; Z79.82 Long term (current) use of aspirin; Z79.899 Other long term (current) drug therapy; Z79.51 Long term (current) use of inhaled steroids

== ENCOUNTER → 2024-04-13 | Outpatient (CLI) | payer MEDICARE, BC ==
[~2024-04-13] MED LIST changes: +ISOVUE-M 300 61% 15ML VIAL As Ordered ONE; +LIDOCAINE 1% SDV 30ML VIAL As Ordered ONE; +dexAMETHasone 10MG/1ML VIAL PRES.FREE As Ordered ONE
== END ==
LOC: M PAIN 08:15
PROVIDERS: ATTEND Anesthesiology
DX: M51.16 Intervertebral disc disorders with radiculopathy, lumbar region (principal); G89.29 Other chronic pain; F32.A Depression, unspecified; F41.0 Panic disorder [episodic paroxysmal anxiety]; R60.0 Localized edema; Z79.82 Long term (current) use of aspirin; Z79.899 Other long term (current) drug therapy
CPT/HCPCS: 62323; J1100; Q9967

== ENCOUNTER → 2024-05-18 | Outpatient (CLI) | payer MEDICARE, BC ==
[~2024-05-18] MED LIST changes: -ISOVUE-M 300 61% 15ML VIAL As Ordered ONE; -LIDOCAINE 1% SDV 30ML VIAL As Ordered ONE; -dexAMETHasone 10MG/1ML VIAL PRES.FREE As Ordered ONE
== END ==
LOC: M PAIN 16:00
PROVIDERS: ATTEND Anesthesiology
DX: M51.16 Intervertebral disc disorders with radiculopathy, lumbar region (principal); M48.061 Spinal stenosis, lumbar region without neurogenic claudication; G89.29 Other chronic pain; Z79.51 Long term (current) use of inhaled steroids; Z79.82 Long term (current) use of aspirin; Z79.899 Other long term (current) drug therapy; Z85.038 Personal history of other malignant neoplasm of large intestine

== ENCOUNTER → 2024-05-28 | Outpatient (CLI) | payer MEDICARE, BC ==
[~2024-05-28] MED LIST changes: +ISOVUE-M 300 61% 15ML VIAL As Ordered ONE; +LIDOCAINE 1% SDV 30ML VIAL As Ordered ONE; +dexAMETHasone 10MG/1ML VIAL PRES.FREE As Ordered ONE
== END ==
LOC: M PAIN 12:30
PROVIDERS: ATTEND Anesthesiology
DX: M51.16 Intervertebral disc disorders with radiculopathy, lumbar region (principal); G89.29 Other chronic pain; Z79.82 Long term (current) use of aspirin; Z79.899 Other long term (current) drug therapy
CPT/HCPCS: 64483; 64484; J0665; J1100; Q9967

== ENCOUNTER → 2024-06-15 | Outpatient (CLI) | payer MEDICARE, BC ==
[~2024-06-15] MED LIST changes: -ISOVUE-M 300 61% 15ML VIAL As Ordered ONE; -LIDOCAINE 1% SDV 30ML VIAL As Ordered ONE; -dexAMETHasone 10MG/1ML VIAL PRES.FREE As Ordered ONE
== END ==
LOC: M PAIN 17:00
PROVIDERS: ATTEND Anesthesiology
DX: M51.16 Intervertebral disc disorders with radiculopathy, lumbar region (principal); G89.29 Other chronic pain; Z79.82 Long term (current) use of aspirin; Z79.899 Other long term (current) drug therapy

== ENCOUNTER → 2024-07-01 | Outpatient (REF) | payer MEDICARE, BC ==
[2024-07-01 19:15] LABS: ALBUMIN 4.1 G/DL (3.2-5.2); BILIRUBIN,TOTAL 0.6 MG/DL (0.3-1.2); CHOLESTEROL RISK RATIO 1.72 (<5); CREATININE FOR GFR 1.06 MG/DL (0.55-1.30); GLOMERULAR FILTRATION RATE 53.2 (>39); POTASSIUM SERUM 4.1 MMOL/L (3.5-5.1); TOTAL PROTEIN 7.1 G/DL (5.7-8.2)
== END ==
LOC: M LABDRWCV 16:52
PROVIDERS: ATTEND Registered Nurse
DX: E78.2 Mixed hyperlipidemia (principal)

== ENCOUNTER → 2024-08-04 | Outpatient (REF) | payer MEDICARE, BC | LOC: M SFHCCLAY 10:55 | PROVIDERS: ATTEND Nurse Practitioner Family | DX: Z53.9 Procedure and treatment not carried out, unspecified reason (principal); F33.40 Major depressive disorder, recurrent, in remission, unspecified; Z85.038 Personal history of other malignant neoplasm of large intestine; E78.2 Mixed hyperlipidemia; I10 Essential (primary) hypertension; M16.11 Unilateral primary osteoarthritis, right hip; M48.061 Spinal stenosis, lumbar region without neurogenic claudication; Z01.818 Encounter for other preprocedural examination ==

== ENCOUNTER → 2024-08-16 | Outpatient (REF) | payer MEDICARE, BC ==
[2024-08-16 18:50] LABS: HEMATOCRIT 28.6 % (36.0-47.0); HEMOGLOBIN 9.9 g/dl (12.0-15.5); MEAN CORPUSCULAR HEMOGLOBIN 30.9 pg (27.0-33.0); MEAN CORPUSCULAR HGB CONC 34.6 g/dl (32.0-36.5); MEAN CORPUSCULAR VOLUME 89.4 fl (80.0-96.0); PLATELET COUNT, AUTOMATED 241 10^3/uL (150-450)
== END ==
LOC: M LABDRAWC 17:22
PROVIDERS: ATTEND Physician Assistant
DX: D62 Acute posthemorrhagic anemia (principal)

== ENCOUNTER → 2025-01-12 | Outpatient (CLI) | payer MEDICARE, BC | LOC: M PLAIMG 09:03 | PROVIDERS: ATTEND Registered Nurse | DX: I35.9 Nonrheumatic aortic valve disorder, unspecified (principal) ==

== ENCOUNTER → 2025-02-14 | Outpatient (REF) | payer MEDICARE, BC ==
[2025-02-14 13:32] LABS: BASO # 0.1 10^3/uL (0.0-0.2); BASO % 1.0 % (0.0-1.0); EOS # 0.3 10^3/uL (0.0-0.5); EOS % 4.0 % (0.0-3.0); LYMPH # 1.6 10^3/uL (1.5-5.0); LYMPH % 25.8 % (24.0-44.0); MONO # 0.4 10^3/uL (0.0-0.8); MONO % 6.9 % (2.0-8.0); NEUTROPHILS # 3.9 10^3/uL (1.5-8.5); NEUTROPHILS % 62.0 % (36.0-66.0); PLATELET COUNT, AUTOMATED 208 10^3/uL (150-450)
[2025-02-14 13:47] LABS: ALT/SGPT 23.0 U/L (7.0-40); AST/SGOT 24.0 U/L (<34); CALCIUM LEVEL 9.5 MG/DL (8.3-10.6); CARBON DIOXIDE LEVEL 30.0 MMOL/L (20-31); CHLORIDE LEVEL 101.0 MMOL/L (98-107); CHOLESTEROL LEVEL 127.0 MG/DL (<200); CHOLESTEROL RISK RATIO 1.87 (<5); CREATININE FOR GFR 0.98 MG/DL (0.55-1.30); GLOMERULAR FILTRATION RATE 58.4 (>32); LDL CHOLESTEROL 41.0 MG/DL (<100); NON-HDL-C 59.2 MG/DL; POTASSIUM SERUM 4.1 MMOL/L (3.5-5.1); SODIUM LEVEL 141.0 MMOL/L (136-145); TRIGLYCERIDES LEVEL 91.0 MG/DL (<150)
[2025-02-14 14:34] LABS: ESTIMATED AVERAGE GLUCOSE 100.0 MG/DL (60-110)
== END ==
LOC: M SFHCCLAY 08:43
PROVIDERS: ATTEND Nurse Practitioner Family
DX: F33.40 Major depressive disorder, recurrent, in remission, unspecified (principal); Z85.038 Personal history of other malignant neoplasm of large intestine; E78.2 Mixed hyperlipidemia; I10 Essential (primary) hypertension; M16.11 Unilateral primary osteoarthritis, right hip; G47.33 Obstructive sleep apnea (adult) (pediatric); M48.061 Spinal stenosis, lumbar region without neurogenic claudication; J45.30 Mild persistent asthma, uncomplicated; Z12.31 Encounter for screening mammogram for malignant neoplasm of breast; Z78.0 Asymptomatic menopausal state; Z79.899 Other long term (current) drug therapy